=== PATIENT | female | born 1955 | race Caucasian/White ===

== ENCOUNTER → 2017-07-27 | Outpatient (CLI) | payer BC ==
[~2017-07-27] MED LIST: ASAMANEX; AZIT250 PO; CETI10 PO; EPIN.3I; EPIN.3I IM; FAMO40 PO; FEXO60; FLUT44OIA; LEVA.63IS; SULTRIDS PO; VERAMYST; Ventolin/Prove6.7 GM
== END | disposition home or self-care (01) ==
LOC: OLS 12:38 → LAB SHORT 12:38
DX: J01.90 Acute sinusitis, unspecified (principal)
CPT/HCPCS: 87070; 87077; 87185; 87205

== ENCOUNTER 2019-04-12 07:17 | Day surgery (SDC) | payer OTHER ==
[~2019-04-12] VITALS: Ht 154.9 cm; Wt 59.3 kg
[~2019-04-12 07:17] MED LIST changes: +B Complex-Foli1 EACH PO; +BUDE.25 NEB; +Flovent 110 MCG12 GM INH; +SUDAFED PO; +VITAMIN D33000 UNI1 PO; +Xopenex Hfa15 GM INH
== END 2019-04-12 09:15 | disposition home or self-care (01) ==
LOC: ORSCSDS 07:17
PROVIDERS: Surgery
PROC: 0DJD8ZZ Inspection of Lower Intestinal Tract, Via Natural or Artificial Opening Endoscopic (ICD-10-PCS; principal; 2019-04-12 08:30)
DX: Z12.11 Encounter for screening for malignant neoplasm of colon (principal); Z86.010 Personal history of colon polyps; J45.909 Unspecified asthma, uncomplicated; Z79.899 Other long term (current) drug therapy
CPT/HCPCS: J2704; J7120

== ENCOUNTER 2022-12-15 11:29 | Day surgery (SDC) | payer MEDICARE, OTHER ==
[~2022-12-15] VITALS: Ht 154.9 cm; Wt 59.0 kg
[~2022-12-15 11:29] MED LIST changes: +ALBU90OI; +DUPIXENT300 MG/21
--- NOTE | 2022-12-15 12:01 | NUR ---
12/15/22 1201 Charito Powell TETRACAINE TO LEFT EYE AT 1200 PLEDGET TO LEFT EYE AT 1201 BY [email or web address]
[2022-12-15 13:22] VITALS: BP 121/61
== END 2022-12-15 13:18 | disposition home or self-care (01) ==
LOC: ORSCSDS 11:29
PROVIDERS: Ophthalmology
PROC: 08RK3JZ Replacement of Left Lens with Synthetic Substitute, Percutaneous Approach (ICD-10-PCS; principal; 2022-12-15 13:00)
DX: H25.12 Age-related nuclear cataract, left eye (principal); Z96.1 Presence of intraocular lens; J45.909 Unspecified asthma, uncomplicated
CPT/HCPCS: J2250; J3010; J3301; J7040; V2632

== ENCOUNTER → 2022-12-24 | Outpatient (CLI) | payer MEDICARE, OTHER ==
[2022-12-24 15:22] LABS: BASOPHILS ABSOLUTE AUTO 0.03 K/mm3 (0.00-0.23); BASOPHILS PERCENT AUTO 0 % (0-2); EOSINOPHILS ABSOLUTE AUTO 0.03 K/mm3 (0.00-0.68); EOSINOPHILS PERCENT AUTO 0 % (0-6); Hematocrit 33.9 % (33.0-51.0); Hemoglobin 11.9 g/dL (11.5-16.0); IMMATURE GRAN ABSOLUTE AUTO 0.08 K/mm3 (0.00-0.10); IMMATURE GRAN PERCENT AUTO 1 % (0-1); LYMPHOCYTES PERCENT AUTO 10 % (21-46); MONOCYTES ABSOLUTE AUTO 1.11 K/mm3 (0.16-1.47); MONOCYTES PERCENT AUTO 9 % (4-13); Mean Corpuscular HGB 31.4 pg (26.0-34.0); Mean Corpuscular HGB Conc 35.1 g/dL (31.5-36.5); Mean Corpuscular Volume 89 fL (80-100); Mean Platelet Volume 9.8 fL (9.1-12.4); NEUTROPHILS ABSOLUTE AUTO 9.75 K/mm3 (1.96-9.15); NEUTROPHILS PERCENT AUTO 80 % (41-73); Platelet Count 306 K/mm3 (150-400); RDW Coefficient Variation 11.9 % (11.7-14.2); Red Blood Cell Count 3.79 M/mm3 (3.80-5.20)
[2022-12-24 15:32] LABS: Albumin, Blood 3.4 g/dL (3.4-5.0); Albumin/Globulin Ratio 0.9 (0.8-1.8); Bilirubin, Total 0.6 mg/dL (0.1-1.0); Bun/Creatinine Ratio 12.5 (12.0-20.0); Calcium, Blood 9.3 mg/dL (8.5-10.1); Creatinine, Blood 0.72 mg/dL (0.40-1.00); Potassium, Blood 4.5 mmol/L (3.5-5.5); Total Protein, Blood 7.4 g/dL (6.4-8.2)
== END ==
LOC: LAB SHORT 15:17 → LAB 15:17
PROVIDERS: Emergency Medicine
DX: M79.604 Pain in right leg (principal)
CPT/HCPCS: 80053; 85025